=== PATIENT | female | born 1980 | race Caucasian/White ===

== ENCOUNTER 2019-03-03 18:01 | Emergency (ER) | payer SELFPAY ==
[~2019-03-03] VITALS: Ht 292.1 cm; Wt 70.3 kg
[2019-03-03 18:06] VITALS: Ht 292.1 cm; Wt 70.3 kg
[2019-03-03 19:34] VITALS: BP 105/77
== END 2019-03-03 19:34 | disposition home or self-care (01) ==
LOC: ED 18:01
DX: J18.9 Pneumonia, unspecified organism (principal)